=== PATIENT | female | born 1980 | race Caucasian/White ===

== ENCOUNTER 2016-09-28 09:01 | Emergency (ER) | payer BC, OTHER, SELFPAY ==
[~2016-09-28] VITALS: Ht 175.3 cm; Wt 73.4 kg
[2016-09-28] MEDS ORDERED: METF500T4 PO (09:27)
[2016-09-28] MEDS ORDERED: SERT100T PO (09:29)
[2016-09-28 10:12] LABS: HCG UR OBC PASS
[2016-09-28 10:38] LABS: BLOOD UREA NITROGEN 10 mg/dL (7-18)
[2016-09-28 12:58] VITALS: BP 135/73
== END 2016-09-28 12:59 | disposition home or self-care (01) ==
LOC: ED 09:50
DX: R63.1 Polydipsia (principal); R35.0 Frequency of micturition; Z88.8 Allergy status to other drugs, medicaments and biological substances
CPT/HCPCS: 36415; 80048; 81003; 81025; 82040; 82962; 83930; 85025; 99284